=== PATIENT | female | born 1960 | race Caucasian/White ===

== ENCOUNTER 2023-03-15 15:43 | Emergency (ER) | payer MEDICARE, BC ==
[2023-03-15] MEDS ORDERED: Sodium Chloride 0.9% 1,000 ML IV ONE (16:19)
[2023-03-15] MEDS ORDERED: Ondansetron 4 MG/2 ML SDV IVPUSH ONE (16:21)
[2023-03-15 16:48] LABS: BASOPHILS PERCENT AUTO 0.1 % (0.2-1.2); EOSINOPHILS PERCENT AUTO 0.1 % (0.0-4.0); HEMATOCRIT 47.9 % (33.0-47.0); HEMOGLOBIN 16.3 g/dL (12.0-16.0); IMMATURE GRAN ABSOLUTE AUTO 0.03 x10^3/uL (0.00-0.07); LYMPHOCYTES ABSOLUTE AUTO 3.2 x10^3/uL (1.0-4.8); MEAN CORPUSCULAR HEMOGLOBIN 31.1 pg (26.0-32.0); MEAN CORPUSCULAR VOLUME 91.4 fL (78.0-93.0); MONOCYTES ABSOLUTE AUTO 1.3 x10^3/uL (0.0-0.8); MONOCYTES PERCENT AUTO 8.5 % (2.0-11.0); NEUTROPHILS ABSOLUTE AUTO 10.7 x10^3/uL (1.8-7.7); NEUTROPHILS PERCENT AUTO 70.1 % (50.0-80.0); PLATELET COUNT,PLT 328 x10^3/uL (130-400); RED BLOOD CELL COUNT 5.24 x10^6/uL (4.00-5.50); WHITE BLOOD CELL COUNT,WBC 15.3 x10^3/uL (4.0-10.0)
[2023-03-15 17:09] LABS: A/G RATIO 1.14; ALANINE AMINOTRANSFERASE,ALT 63 U/L (14-59); ALBUMIN 4.1 g/dL (3.4-5.0); ALKALINE PHOSPHATASE 118 U/L (46-116); ASPARTATE AMNIOTRANSFERASE,AST 25 U/L (15-37); BILIRUBIN TOTAL 0.7 mg/dL (0.2-1.0); BLOOD UREA NITROGEN,BUN 14 mg/dL (7-18); C-REACTIVE PROTEIN 0.16 mg/dL (<=0.30); CARBON DIOXIDE,CO2 26 mmol/L (21-32); CHLORIDE,CL 99 mmol/L (98-107); CREATININE 0.9 mg/dL (0.55-1.02); GLUCOSE RANDOM 123 mg/dL (70-99); LIPASE 25 U/L (19-71); POTASSIUM,K 3.3 mmol/L (3.5-5.1); PROTEIN TOTAL,TP 7.7 g/dL (6.4-8.2); SODIUM,NA 136 mmol/L (136-145)
[2023-03-15 17:16] LABS: ANION GAP 14.3 mmol/L (5-15); ESTIMATED GFR 72 mL/min (>=60)
[2023-03-15 17:36] LABS: APPEARANCE,URINE CLEAR (CLEAR); BILIRUBIN,URINE NEGATIVE (NEGATIVE); COLOR,URINE YELLOW (YELLOW); GLUCOSE,URINE NEGATIVE (NEGATIVE); KETONES,URINE 15 mg/dL (NEGATIVE); LEUKOCYTE ESTERASE,URINE NEGATIVE (NEGATIVE); NITRITE,URINE NEGATIVE (NEGATIVE); OCCULT BLOOD,URINE NEGATIVE (NEGATIVE); PROTEIN,URINE NEGATIVE (NEGATIVE); UROBILINOGEN,URINE 0.2 EU/dL (0.2)
[2023-03-15] MEDS ORDERED: Take Home: Ondansetron 4 MG Tab.DIS, 5 Tab Pack PO ONE (17:46)
== END 2023-03-15 18:01 | disposition home or self-care (01) ==
LOC: VM.ED 15:43
DX: E86.0 Dehydration (principal); R11.2 Nausea with vomiting, unspecified; E78.00 Pure hypercholesterolemia, unspecified; J44.9 Chronic obstructive pulmonary disease, unspecified; I10 Essential (primary) hypertension; Z72.0 Tobacco use
CPT/HCPCS: 74019; 80053; 81003; 83690; 85025; 86140; 96361; 96374; 99284; J2405; J7030; Q0162